=== PATIENT | female | born 1995 | race Caucasian/White ===

== ENCOUNTER 2018-08-03 10:09 | Emergency (ER) | payer BC, OTHER ==
[2018-08-03] MEDS ORDERED: ONDANSETRON HCL INJ/PF 4 MG/2 ML SDV IV ONE (10:19)
[2018-08-03] MEDS ORDERED: NORMAL SALINE 1000 ML 1,000 ML IV PRN (10:19)
--- NOTE | 2018-08-03 10:20 | ER Document Report ---
ED Medical Screen (RME) - General Chief Complaint: OB Problem (<20wks) Stated Complaint: ABDOMINAL PAIN, NAUSEA/VOMITTING Time Seen by Provider: 08/03/18 10:15 TRAVEL OUTSIDE OF THE [place] IN LAST 30 DAYS: No - HPI Notes: 08/03/18 10:19 Patient is a 22-year-old female G1, P0 approximately 17 weeks who presents to the emergency department complaining of feeling mid to epigastric abdominal cramping this morning with increased frequency of nausea and vomiting over the past 3 days. Patient states that she has had nausea and vomiting throughout her , but increased recently. She has not been able to keep much food or fluids down. She still urinating normally and having normal bowel movements. Patient does report a medical history of cholecystectomy and appendectomy. Denies DELEON, fever, neck pain, URI, CP, SOB, current Abd pain, or rash. I have treated and performed a rapid initial assessment of this patient. A comprehensive ED assessment and evaluation of the patient, analysis of test results and completion of medical decision making process will be conducted by additional ED providers. PHYSICAL EXAMINATION: GENERAL: Well-appearing, well-nourished and in no acute distress. A&Ox4. Answers questions appropriately. LUNGS: Breath sounds clear to auscultation bilaterally and equal. No wheezes rales or rhonchi. HEART: Regular rate and rhythm without murmurs, rubs, gallops. ABDOMEN: Soft, nondistended abdomen. No guarding, no rebound. Normal bowel sounds present. No CVA tenderness bilaterally. grossly non-tender (cannot elicit thorough abd exam w/o table, however). - Related Data Allergies/Adverse Reactions: Sulfa (Sulfonamide Antibiotics) Allergy (Verified 08/03/18 10:10) Physical Exam - Vital signs Vitals: Temp Pulse Resp BP Pulse Ox 98 F 99 18 139/72 H 97 08/03/18 10:10 08/03/18 10:10 08/03/18 10:10 08/03/18 10:10 08/03/18 10:10 Course - Vital Signs Vital signs: Temp Pulse Resp BP Pulse Ox 98 F 99 18 139/72 H 97 08/03/18 10:10 08/03/18 10:10 08/03/18 10:10 08/03/18 10:10 08/03/18 10:10
[2018-08-03 10:46] LABS: ABSOLUTE EOSINOPHILS # (AUTO) 0.1 10^3/uL (0.0-0.6); ABSOLUTE LYMPHOCYTES (AUTO) 1.5 10^3/uL (0.5-4.7); ABSOLUTE MONOCYTES (AUTO) 0.5 10^3/uL (0.1-1.4); ABSOLUTE NEUT (AUTO) 10.4 10^3/uL (1.7-8.2); BASOPHILS % (AUTO) 0.3 % (0-2); EOSINOPHILS % (AUTO) 0.5 % (0-6); HEMATOCRIT 38.3 % (36.0-47.0); HEMOGLOBIN 12.6 g/dL (12.0-15.5); LYMPHOCYTES % (AUTO) 11.9 % (13-45); MEAN CORPUSCULAR HEMOGLOBIN 26.6 pg (27.0-33.4); MEAN CORPUSCULAR HGB CONC 32.8 g/dL (32.0-36.0); MEAN CORPUSCULAR VOLUME 81 fl (80-97); PLATELET COUNT 237 10^3/uL (150-450); RED BLOOD COUNT 4.72 10^6/uL (3.72-5.28); SEGMENTED NEUTROPHILS % (AUTO) 83.3 % (42-78); TOTAL CELLS COUNTED % (AUTO) 100 %; WHITE BLOOD COUNT 12.4 10^3/uL (4.0-10.5)
[2018-08-03 10:49] LABS: APPEARANCE,URINE SLIGHTLY-CLOUDY; BILIRUBIN,URINE NEGATIVE (NEGATIVE); COLOR,URINE YELLOW; GLUCOSE, URINE NEGATIVE (NEGATIVE); KETONES,URINE NEGATIVE (NEGATIVE); LEUKOCYTE ESTERASE,URINE NEGATIVE (NEGATIVE); NITRITE,URINE NEGATIVE (NEGATIVE); PROTEIN,URINE NEGATIVE (NEGATIVE); URINE SPECIFIC GRAVITY 1.013; UROBILINOGEN,URINE NEGATIVE mg/dL (<2.0)
--- NOTE | 2018-08-03 11:02 | ER Document Report ---
ED General - General Chief Complaint: OB Problem (<20wks) Stated Complaint: ABDOMINAL PAIN, NAUSEA/VOMITTING Time Seen by Provider: 08/03/18 10:15 Notes: Patient is a 22-year-old female, , 17 wks gravid that presents to the emergency department for chief complaint of nausea, vomiting and epigastric pain patient states that she is been having nausea and vomiting throughout her , she is been on Phenergan and Zofran, but she has not been able to keep the Zofran down at home because she has been have vomiting so much, she is worried she is getting somewhat dehydrated. She is also had epigastric pain she describes as a fullness and burning sensation. She states that she had reflux prior to her as well. She is currently not taking anything for her reflux, no [id number] medications or prescriptions. She denies any lightheadedness, dizziness or syncopal episodes, denies any chest pain or shortness of breath. She denies any vaginal bleeding, discharge, dysuria or hematuria. Past Medical History: GERD, depression, anxiety Past Surgical History: Cholecystectomy, appendectomy Social History: Denies tobacco, alcohol or drug use. Family History: Reviewed and noncontributory for presenting illness Allergies: Reviewed, see documented allergy list. REVIEW OF SYSTEMS: Other than noted above, the 12 point review of systems was reviewed with the patient and were negative, all pertinent findings are included in the HPI. PHYSICAL EXAMINATION: Vital signs reviewed, nursing noted reviewed. GENERAL: Well-appearing, well-nourished and in no acute distress. HEAD: Atraumatic, normocephalic. EYES: Eyes appear normal, extraocular movements intact, sclera anicteric, conjunctiva are normal. ENT: nares patent, oropharynx clear without exudates. Moist mucous membranes. NECK: Normal range of motion, supple without lymphadenopathy LUNGS: Breath sounds clear to auscultation bilaterally and equal. No wheezes rales or rhonchi. HEART: Regular rate and rhythm without murmurs ABDOMEN: Soft, obese, gravid, nontender, normoactive bowel sounds. No rebound, guarding, or rigidity. No masses appreciated. EXTREMITIES: Nontender, good range of motion, no pitting or edema. NEUROLOGICAL: No focal neurological deficits. Moves all extremities spontaneously Motor and sensory grossly intact on exam. PSYCH: Normal mood, normal affect. SKIN: Warm, Dry, normal turgor, no rashes or lesions noted on exposed skin TRAVEL OUTSIDE OF THE [place] IN LAST 30 DAYS: No - Related Data Allergies/Adverse Reactions: Sulfa (Sulfonamide Antibiotics) Allergy (Verified 08/03/18 10:10) Past Medical History - Social History Smoking Status: Never Smoker Chew tobacco use (# tins/day): No Frequency of alcohol use: None Drug Abuse: None Family History: Reviewed & Not Pertinent Patient has suicidal ideation: No Patient has homicidal ideation: No Renal/ Medical History: Denies: Hx Peritoneal Dialysis Psychiatric Medical History: Reports: Hx Attention Deficit Hyperactivity Disorder, Hx Depression Past Surgical History: Reports: Hx Appendectomy - 2011, Hx Cholecystectomy - 2011, Hx Orthopedic Surgery - L ankle Physical Exam - Vital signs Vitals: Temp Pulse Resp BP Pulse Ox 98 F 99 18 139/72 H 97 08/03/18 10:10 08/03/18 10:10 08/03/18 10:10 08/03/18 10:10 08/03/18 10:10 Course - Re-evaluation Re-evalutation: Patient seen and examined vital signs reviewed. Laboratory data and/or imaging were ordered as appropriate for the patient's presenting symptoms and complaint, with consideration of any critical or life threatening conditions that may be associated with their obtained history and exam as noted above. Patient was treated with IV fluids, and IV Zofran Results were reviewed when available and demonstrated mild leukocytosis, likely secondary to the patient's frequent vomiting, no evidence of acute infection. UA did have bacteria, but no leukocyte esterase, white cells, or nitrites, not convincing of urinary tract infection. Chemistry was unremarkable Bedside OB ultrasound was performed, the fetus, was moving all limbs, detectable heartbeat, 144 bpm, placenta was posterior The patient was re-evaluated and was stable and much improved, no further vomiting Evaluation was most consistent with nausea and vomiting in , epigastric pain, likely reflux Results were discussed with the patient at this point, after careful consideration I feel that that patient can be discharged from the emergency department, the patient was educated treatments and reasons to return to the emergency department based on their presumed diagnosis as noted above, they were advised to followup with a primary care physician in 2-3 days. Patient was agreeable to plan of care. *Note is created using voice recognition software and may contain spelling, syntax or grammatical errors. Laboratory 08/03/18 08/03/18 08/03/18 10:30 10:30 10:30 WBC 12.4 H RBC 4.72 Hgb 12.6 Hct 38.3 MCV 81 MCH 26.6 L MCHC 32.8 RDW 15.0 H Plt Count 237 Seg Neutrophils % 83.3 H Lymphocytes % 11.9 L Monocytes % 4.0 Eosinophils % 0.5 Basophils % 0.3 Absolute Neutrophils 10.4 H Absolute Lymphocytes 1.5 Absolute Monocytes 0.5 Absolute Eosinophils 0.1 Absolute Basophils 0.0 Sodium 138.0 Potassium 4.0 Chloride 104 Carbon Dioxide 25 Anion Gap 9 BUN 5 L Creatinine 0.59 Est GFR ( Amer) > 60 Est GFR (Non-Af Amer) > 60 Glucose 78 Calcium 9.6 Total Bilirubin 0.2 Direct Bilirubin 0.2 Neonat Total Bilirubin Not Reportable Neonat Direct Bilirubin Not Reportable Neonat Indirect Bili Not Reportable AST 15 ALT 34 Alkaline Phosphatase 94 Total Protein 6.7 Albumin 3.9 Lipase 82.3 Urine Color YELLOW Urine Appearance SLIGHTLY-CLOUDY Urine pH 6.0 Ur Specific [place] 1.013 Urine Protein NEGATIVE Urine Glucose (UA) NEGATIVE Urine Ketones NEGATIVE Urine Blood NEGATIVE Urine Nitrite NEGATIVE Urine Bilirubin NEGATIVE Urine Urobilinogen NEGATIVE Ur Leukocyte Esterase NEGATIVE Urine WBC (Auto) 4 Urine RBC (Auto) 1 Urine Bacteria (Auto) 3+ Squamous Epi Cells Auto 9 Urine Mucus (Auto) RARE Urine Ascorbic Acid NEGATIVE - Vital Signs Vital signs: Temp Pulse Resp BP Pulse Ox 98 F 99 18 139/72 H 97 08/03/18 10:10 08/03/18 10:10 08/03/18 10:10 08/03/18 10:10 08/03/18 10:10 - Laboratory Result Diagrams: 08/03/18 10:30 08/03/18 10:30 Laboratory results interpreted by me: 08/03/18 08/03/18 10:30 10:30 WBC 12.4 H MCH 26.6 L RDW 15.0 H Seg Neutrophils % 83.3 H Lymphocytes % 11.9 L Absolute Neutrophils 10.4 H BUN 5 L Discharge - Discharge Clinical Impression: Epigastric pain Nausea and vomiting Qualifiers: Vomiting type: unspecified Vomiting Intractability: non-intractable Qualified Code(s): R11.2 - Nausea with vomiting, unspecified Condition: Stable Disposition: HOME, SELF-CARE Instructions: Vomiting ([facility]) Additional Instructions: Please follow-up with your [facility], and you can try taking the Reglan, up to 3 times a day, if needed for nausea and vomiting. I would also recommend trying to take Zantac 150 mg twice daily, to help with the reflux symptoms. Prescriptions: Metoclopramide HCl [Reglan 10 mg Tablet] 1 tab PO Q8H PRN #15 tablet PRN Reason: nausea/vomiting Referrals: [facility] [Provider Group] - Follow up in 3-5 days
[2018-08-03 11:03] LABS: ALANINE AMINOTRANSFERASE 34 U/L (9-52); ALBUMIN 3.9 g/dL (3.5-5.0); ALKALINE PHOSPHATASE 94 U/L (38-126); ANION GAP 9 (5-19); ASPARTATE AMINO TRANSFERASE 15 U/L (14-36); BILIRUBIN,DIRECT 0.2 mg/dL (0.0-0.4); BILIRUBIN,TOTAL 0.2 mg/dL (0.2-1.3); BLOOD UREA NITROGEN 5 mg/dL (7-20); CALCIUM 9.6 mg/dL (8.4-10.2); CARBON DIOXIDE 25 mmol/L (22-30); CHLORIDE 104 mmol/L (98-107); GLUCOSE 78 mg/dL (75-110); LIPASE 82.3 U/L (23-300); TOTAL PROTEIN 6.7 g/dL (6.3-8.2)
[2018-08-03 12:18] VITALS: BP 121/66
== END 2018-08-03 11:45 | disposition home or self-care (01) ==
LOC: ER 10:09
DX: O21.9 Vomiting of pregnancy, unspecified (principal); Z79.899 Other long term (current) drug therapy; O26.892 Other specified pregnancy related conditions, second trimester; R10.13 Epigastric pain; R82.71 Bacteriuria; O99.112 Other diseases of the blood and blood-forming organs and certain disorders involving the immune mechanism complicating pregnancy, second trimester; D72.829 Elevated white blood cell count, unspecified; Z3A.17 17 weeks gestation of pregnancy; Z87.19 Personal history of other diseases of the digestive system; Z90.49 Acquired absence of other specified parts of digestive tract; Z88.2 Allergy status to sulfonamides
CPT/HCPCS: 99284; 96361; 96374; 36415; 87086; 83690; 85025; 80053; 81001; J2405; J7030

== ENCOUNTER 2018-09-02 10:39 | Emergency (ER) | payer BC, OTHER ==
[2018-09-02 10:55] VITALS: BP 136/79
[2018-09-02] MEDS ORDERED: METOCLOPRAMIDE HCL INJ/PF 10 MG/2 ML SDV IV ONE (11:21)
[2018-09-02] MEDS ORDERED: NORMAL SALINE 1000 ML 1,000 ML IV ONE (11:21)
--- NOTE | 2018-09-02 11:23 | ER Document Report ---
ED Medical Screen (RME) - General Chief Complaint: Nausea/Vomiting Stated Complaint: VOMITING Time Seen by Provider: 09/02/18 11:17 TRAVEL OUTSIDE OF THE [place] IN LAST 30 DAYS: No - HPI Notes: 09/02/18 11:21 Patient is a 22-year-old female who is approximate 22 weeks who presents complaint nausea, vomiting, watery diarrhea that began 5 days ago. Patient [facility]. Patient states that her last episode of vomiting was early this morning. Patient states that when she vomited yesterday she did have an episode of possible Parker Snyder contraction which only occurred after she vomited and resolved soon after. She has not had any contraction-like pain otherwise. No vaginal discharge, odor, or bleeding. Patient states that she does have history of anxiety and depression as well as chronic GI issues after having her gallbladder removed years ago. No other past medical history. Denies DELEON, fever, neck pain, URI, CP, SOB, Abd pain, dysuria, back pain, or rash. I have treated and performed a rapid initial assessment of this patient. A comprehensive ED assessment and evaluation of the patient, analysis of test results and completion of medical decision making process will be conducted by additional ED providers. PHYSICAL EXAMINATION: GENERAL: Well-appearing, well-nourished and in no acute distress. A&Ox4. Answers questions appropriately. LUNGS: Breath sounds clear to auscultation bilaterally and equal. No wheezes rales or rhonchi. HEART: Regular rate and rhythm without murmurs, rubs, gallops. - Related Data Allergies/Adverse Reactions: Sulfa (Sulfonamide Antibiotics) Allergy (Verified 09/02/18 11:10) Past Medical History - Social History Frequency of alcohol use: None Drug Abuse: None Renal/ Medical History: Denies: Hx Peritoneal Dialysis Psychiatric Medical History: Reports: Hx Attention Deficit Hyperactivity Disorder, Hx Depression Past Surgical History: Reports: Hx Appendectomy - 2011, Hx Cholecystectomy - 2011, Hx Orthopedic Surgery - L ankle Physical Exam - Vital signs Vitals: Temp Pulse Resp BP Pulse Ox 98.1 F 109 H 20 136/79 H 97 09/02/18 10:54 09/02/18 10:54 09/02/18 10:54 09/02/18 10:54 09/02/18 10:54 Course - Vital Signs Vital signs: Temp Pulse Resp BP Pulse Ox 98.1 F 109 H 20 136/79 H 97 09/02/18 10:54 09/02/18 10:54 09/02/18 10:54 09/02/18 10:54 09/02/18 10:54
[2018-09-02 11:55] LABS: ABSOLUTE BASOPHILS # (AUTO) 0.1 10^3/uL (0.0-0.2); ABSOLUTE LYMPHOCYTES (AUTO) 1.5 10^3/uL (0.5-4.7); ABSOLUTE MONOCYTES (AUTO) 0.5 10^3/uL (0.1-1.4); ABSOLUTE NEUT (AUTO) 10.1 10^3/uL (1.7-8.2); BASOPHILS % (AUTO) 0.4 % (0-2); EOSINOPHILS % (AUTO) 0.4 % (0-6); HEMATOCRIT 38.7 % (36.0-47.0); HEMOGLOBIN 13.1 g/dL (12.0-15.5); LYMPHOCYTES % (AUTO) 12.2 % (13-45); MEAN CORPUSCULAR HEMOGLOBIN 27.3 pg (27.0-33.4); MEAN CORPUSCULAR HGB CONC 33.9 g/dL (32.0-36.0); MEAN CORPUSCULAR VOLUME 81 fl (80-97); MONOCYTES % (AUTO) 3.9 % (3-13); PLATELET COUNT 277 10^3/uL (150-450); RED CELL DISTRIBUTION WIDTH 14.6 % (11.5-14.0); SEGMENTED NEUTROPHILS % (AUTO) 83.1 % (42-78); TOTAL CELLS COUNTED % (AUTO) 100 %; WHITE BLOOD COUNT 12.1 10^3/uL (4.0-10.5)
[2018-09-02 12:10] LABS: APPEARANCE,URINE CLOUDY; BILIRUBIN,URINE SMALL (NEGATIVE); COLOR,URINE AMBER; GLUCOSE, URINE NEGATIVE (NEGATIVE); KETONES,URINE 80 mg/dL (NEGATIVE); LEUKOCYTE ESTERASE,URINE NEGATIVE (NEGATIVE); NITRITE,URINE NEGATIVE (NEGATIVE); PROTEIN,URINE 30 mg/dL (NEGATIVE); URINE SPECIFIC GRAVITY 1.025
[2018-09-02 12:18] LABS: ALANINE AMINOTRANSFERASE 94 U/L (9-52); ALBUMIN 4.1 g/dL (3.5-5.0); ALKALINE PHOSPHATASE 141 U/L (38-126); ANION GAP 12 (5-19); ASPARTATE AMINO TRANSFERASE 55 U/L (14-36); BILIRUBIN,DIRECT 0.3 mg/dL (0.0-0.4); BILIRUBIN,TOTAL 0.6 mg/dL (0.2-1.3); BLOOD UREA NITROGEN 6 mg/dL (7-20); CALCIUM 9.6 mg/dL (8.4-10.2); CARBON DIOXIDE 25 mmol/L (22-30); CHLORIDE 103 mmol/L (98-107); GLUCOSE 74 mg/dL (75-110); POTASSIUM 4.1 mmol/L (3.6-5.0); SODIUM 139.7 mmol/L (137-145); TOTAL PROTEIN 7.1 g/dL (6.3-8.2)
--- NOTE | 2018-09-02 14:35 | ER Document Report ---
ED General - General Chief Complaint: Nausea/Vomiting Stated Complaint: VOMITING Time Seen by Provider: 09/02/18 11:17 TRAVEL OUTSIDE OF THE [place] IN LAST 30 DAYS: No - HPI Notes: Patient is a 22-year-old female, , who presents to the emergency department for evaluation of nausea, vomiting, diarrhea. She was sent in by her OBs office for possible IV fluids. She is been on multiple medications for nausea. She has had multiple episodes of nonbloody, nonbilious emesis, as well as some diarrhea. She denies any fevers or chills. She has no vaginal bleeding or discharge. She is still feeling the baby move. She denies any pain at this time. - Related Data Allergies/Adverse Reactions: Sulfa (Sulfonamide Antibiotics) Allergy (Verified 09/02/18 11:10) Home Medications: Lexapro, Vyvanse, vitamin Past Medical History - General Information source: Patient - Social History Smoking Status: Never Smoker Frequency of alcohol use: None Drug Abuse: None Family History: Reviewed & Not Pertinent Patient has suicidal ideation: No Patient has homicidal ideation: No Renal/ Medical History: Denies: Hx Peritoneal Dialysis Psychiatric Medical History: Reports: Hx Attention Deficit Hyperactivity Disorder, Hx Depression Past Surgical History: Reports: Hx Appendectomy - 2011, Hx Cholecystectomy - 2011, Hx Orthopedic Surgery - L ankle Review of Systems - Review of Systems Constitutional: No symptoms reported EENT: No symptoms reported Cardiovascular: No symptoms reported Respiratory: No symptoms reported Gastrointestinal: See HPI Genitourinary: No symptoms reported Female Genitourinary: See HPI Musculoskeletal: No symptoms reported Skin: No symptoms reported Neurological/Psychological: No symptoms reported Physical Exam - Vital signs Vitals: Temp Pulse Resp BP Pulse Ox 98.1 F 109 H 20 136/79 H 97 09/02/18 10:54 09/02/18 10:54 09/02/18 10:54 09/02/18 10:54 09/02/18 10:54 - Notes Notes: Vital signs reviewed, please refer to chart. Head is normocephalic, atraumatic. Pupils equal round, reactive to light. Neck is supple without meningismus. Heart is regular rate and rhythm. Lungs are clear to auscultation bilaterally. Abdomen is gravid, nontender, normoactive bowel sounds throughout. Extremities without cyanosis, clubbing. Posterior calves are nontender. Peripheral pulses are equal. Skin is warm and dry. Patient is awake, alert, neurological exam is nonfocal. Course - Re-evaluation Re-evalutation: 09/02/18 14:33 Patient presents to the emergency department for evaluation. She was reviewed with laboratory investigations, given IV fluids and Reglan. She states her nausea is entirely resolved. She is still having some mild diarrhea. I did offer her more IV fluids. She declines at this time, states she rather just go home. She has a prescription for Reglan waiting for her. She is advised on dietary choices for diarrhea. She is advised to follow-up with her OB this week. Certainly if she develops worsening or new concerning symptoms of any sort, including but not limited to abdominal pain, vaginal bleeding, dizziness, she needs to return to the ED for further evaluation. - Vital Signs Vital signs: Temp Pulse Resp BP Pulse Ox 98.1 F 109 H 20 136/79 H 97 09/02/18 10:54 09/02/18 10:54 09/02/18 10:54 09/02/18 10:54 09/02/18 10:54 - Laboratory Result Diagrams: 09/02/18 11:41 09/02/18 11:41 Laboratory results interpreted by me: 09/02/18 09/02/18 09/02/18 11:41 11:41 11:50 WBC 12.1 H RDW 14.6 H Seg Neutrophils % 83.1 H Lymphocytes % 12.2 L Absolute Neutrophils 10.1 H BUN 6 L Glucose 74 L AST 55 H ALT 94 H Alkaline Phosphatase 141 H Urine Protein 30 H Urine Ketones 80 H Urine Bilirubin SMALL H Urine Urobilinogen 4.0 H Discharge - Discharge Clinical Impression: Nausea and vomiting in , Diarrhea Condition: Stable Disposition: HOME, SELF-CARE Instructions: Intravenous (IV) Fluids ([facility]), Vomiting ([facility]), Reglan ([facility]) Additional Instructions: Follow-up with your OB as scheduled. Take Reglan as needed for nausea. Return to the emergency department with worsening or new concerning symptoms of any sort.
== END 2018-09-02 16:13 | disposition home or self-care (01) ==
LOC: ER 10:39
DX: O21.9 Vomiting of pregnancy, unspecified (principal); R19.7 Diarrhea, unspecified; Z88.2 Allergy status to sulfonamides; Z90.49 Acquired absence of other specified parts of digestive tract
CPT/HCPCS: 99284; 96361; 96374; 36415; 83690; 85025; 80053; 81001; J2765; J7030

== ENCOUNTER 2018-11-24 19:34 | Outpatient (CLI) | payer BC, OTHER ==
[2018-11-24 20:22] LABS: BACTERIA (WET MOUNT) 4+ BACTERIA SEEN; EPITHELIALS (WET MOUNT) 4+ EPITHELIALS SEEN; RBCS (WET MOUNT) NO RBCS SEEN; T.VAGINALIS (WET MOUNT) NO TRICHOMONAS SEEN; WBCS (WET MOUNT) 3+ WBCS SEEN; YEAST (WET MOUNT) NO YEAST SEEN
[2018-11-24 20:40] LABS: APPEARANCE,URINE CLEAR; BILIRUBIN,URINE NEGATIVE (NEGATIVE); COLOR,URINE YELLOW; GLUCOSE, URINE NEGATIVE (NEGATIVE); KETONES,URINE NEGATIVE (NEGATIVE); LEUKOCYTE ESTERASE,URINE NEGATIVE (NEGATIVE); NITRITE,URINE NEGATIVE (NEGATIVE); PROTEIN,URINE 30 mg/dL (NEGATIVE); URINE SPECIFIC GRAVITY 1.018; UROBILINOGEN,URINE NEGATIVE mg/dL (<2.0)
[2018-11-24] MEDS ORDERED: HYDROXYZINE PAMOATE 50 MG CAPSULE ONE (20:51)
[2018-11-24 21:03] LABS: URINE AMPHETAMINES SCREEN NEGATIVE; URINE BARBITURATES SCREEN NEGATIVE; URINE BENZODIAZEPINES SCREEN NEGATIVE; URINE COCAINE SCREEN NEGATIVE; URINE MARIJUANA (THC) SCREEN NEGATIVE; URINE METHADONE SCREEN NEGATIVE; URINE PHENCYCLIDINE SCREEN NEGATIVE
[2018-11-24 21:50] LABS: CHLAM PCR NOT DETECTED (NOT DETECT)
--- NOTE | 2018-11-24 22:20 | Non Stress Test Report ---
Non Stress Test Datetime Report Generated by CPN: 11/24/2018 22:20 DEMOGRAPHIC EGA NST: 33.3 INDICATION Indication for Study: Ordered by Provider MONITORING Monitor Explained: Monitor Explained; Test Explained; Patient Verbalized Understanding Time on Monitor: 11/24/2018 20:07 Time off Monitor: 11/24/2018 20:52 NST Duration: 45 NST INTERVENTIONS NST Interventions: PO Hydration Physician Notified NST: Dr. Keanu BABY A: [id number] BABY A Movement : Present Contraction Frequency : Occasional FHR Baseline : 140 Accelerations : 15X15 Decelerations : None Variability : Moderate 6-25bpm NST Review: Meets Criteria for Reactive NST NST Review and Verified By : Eddie Holder RN NSRuth Results: Reactive NST REPORT Report Trigger: Send Report
[2018-11-24] MEDS ORDERED: HYDROXYZINE PAMOATE 50 MG CAPSULE PO ONE (22:32)
== END 2018-11-24 21:24 | disposition home or self-care (01) ==
LOC: LC 19:34
PROVIDERS: ATTEND Obstetrics & Gynecology
PROC: 4A1HXCZ Monitoring of Products of Conception, Cardiac Rate, External Approach (ICD-10-PCS; principal; 2018-11-24)
DX: O47.03 False labor before 37 completed weeks of gestation, third trimester (principal); Z3A.33 33 weeks gestation of pregnancy
CPT/HCPCS: 80307; 81001; 84112; 87210; 87491; 87591

== ENCOUNTER 2018-12-02 09:59 | Emergency (ER) | payer BC, OTHER ==
[2018-12-02] MEDS ORDERED: METOCLOPRAMIDE HCL INJ/PF 10 MG/2 ML SDV IV ONE (11:33)
[2018-12-02] MEDS ORDERED: NORMAL SALINE 1000 ML 1,000 ML IV ONE ×2 (11:33)
--- NOTE | 2018-12-02 11:35 | ER Document Report ---
ED Medical Screen (RME) - General Chief Complaint: Nausea Stated Complaint: POSSIBLE DEHYDRATION Time Seen by Provider: 12/02/18 11:31 Primary Care Provider: BO WILLARD MD [Primary Care Provider] - Follow up as needed Mode of Arrival: Ambulatory Information source: Patient Notes: Patient is an otherwise healthy 23-year-old female presenting to the emergency department at 34 weeks gestation with complaints of ongoing nausea with vomiting. Patient reports this is been ongoing her entire . She states she was seen at [facility] today who directed her to the emergency room for IV fluids. She states that she usually takes Reglan or Zofran for her nausea. She denies any abdominal pain, abdominal cramping, vaginal discharge, vaginal bleeding or dysuria. Exam: Large gravid abdomen is soft and nontender. No CVA tenderness. I have greeted and performed a rapid initial assessment of this patient. A comprehensive ED assessment and evaluation of the patient, analysis of test results and completion of the medical decision making process will be conducted by additional ED providers. I have specifically instructed the patient or family members with the patient to immediately return to any nursing staff should anything change in the patient's condition or with their chief complaint. This medical record was dictated with voice recognizing software. There may be grammatical, syntax errors that are unintended. TRAVEL OUTSIDE OF THE [place] IN LAST 30 DAYS: No - Related Data Allergies/Adverse Reactions: Sulfa (Sulfonamide Antibiotics) Allergy (Verified 12/02/18 10:02) Past Medical History Renal/ Medical History: Denies: Hx Peritoneal Dialysis Psychiatric Medical History: Reports: Hx Attention Deficit Hyperactivity Disorder, Hx Depression Past Surgical History: Reports: Hx Appendectomy - 2011, Hx Cholecystectomy - 2011, Hx Orthopedic Surgery - L ankle Physical Exam - Vital signs Vitals: Temp Pulse Resp BP Pulse Ox 97.8 F 92 16 136/76 H 98 12/02/18 10:05 12/02/18 10:05 12/02/18 10:05 12/02/18 10:05 12/02/18 10:05 Course - Vital Signs Vital signs: Temp Pulse Resp BP Pulse Ox 97.8 F 92 16 136/76 H 98 12/02/18 10:05 12/02/18 10:05 12/02/18 10:05 12/02/18 10:05 09/10/19 10:05 Doctor's Discharge - Discharge Referrals: BO WILLARD MD [Primary Care Provider] - Follow up as needed
[2018-12-02 12:06] LABS: ABSOLUTE BASOPHILS # (AUTO) 0.1 10^3/uL (0.0-0.2); ABSOLUTE EOSINOPHILS # (AUTO) 0.1 10^3/uL (0.0-0.6); ABSOLUTE LYMPHOCYTES (AUTO) 1.4 10^3/uL (0.5-4.7); ABSOLUTE MONOCYTES (AUTO) 0.5 10^3/uL (0.1-1.4); ABSOLUTE NEUT (AUTO) 9.5 10^3/uL (1.7-8.2); BASOPHILS % (AUTO) 0.5 % (0-2); EOSINOPHILS % (AUTO) 0.6 % (0-6); HEMATOCRIT 35.3 % (36.0-47.0); HEMOGLOBIN 11.6 g/dL (12.0-15.5); LYMPHOCYTES % (AUTO) 12.2 % (13-45); MEAN CORPUSCULAR HEMOGLOBIN 25.6 pg (27.0-33.4); MEAN CORPUSCULAR HGB CONC 32.8 g/dL (32.0-36.0); MEAN CORPUSCULAR VOLUME 78 fl (80-97); MONOCYTES % (AUTO) 4.7 % (3-13); PLATELET COUNT 255 10^3/uL (150-450); RED BLOOD COUNT 4.52 10^6/uL (3.72-5.28); RED CELL DISTRIBUTION WIDTH 14.8 % (11.5-14.0); TOTAL CELLS COUNTED % (AUTO) 100 %; WHITE BLOOD COUNT 11.6 10^3/uL (4.0-10.5)
[2018-12-02 12:13] LABS: APPEARANCE,URINE SLIGHTLY-CLOUDY; BILIRUBIN,URINE NEGATIVE (NEGATIVE); COLOR,URINE AMBER; GLUCOSE, URINE NEGATIVE (NEGATIVE); KETONES,URINE NEGATIVE (NEGATIVE); LEUKOCYTE ESTERASE,URINE NEGATIVE (NEGATIVE); NITRITE,URINE NEGATIVE (NEGATIVE); PROTEIN,URINE 30 mg/dL (NEGATIVE); URINE SPECIFIC GRAVITY 1.023; UROBILINOGEN,URINE NEGATIVE mg/dL (<2.0)
[2018-12-02 12:29] LABS: ALBUMIN 3.6 g/dL (3.5-5.0); ALKALINE PHOSPHATASE 205 U/L (38-126); ANION GAP 11 (5-19); ASPARTATE AMINO TRANSFERASE 62 U/L (14-36); BILIRUBIN,DIRECT 0.1 mg/dL (0.0-0.4); BILIRUBIN,TOTAL 0.3 mg/dL (0.2-1.3); BLOOD UREA NITROGEN 6 mg/dL (7-20); CALCIUM 9.3 mg/dL (8.4-10.2); CARBON DIOXIDE 23 mmol/L (22-30); CHLORIDE 103 mmol/L (98-107); POTASSIUM 4.1 mmol/L (3.6-5.0); TOTAL PROTEIN 6.3 g/dL (6.3-8.2)
[2018-12-02 12:53] LABS: GLUCOSE 69 mg/dL (75-110)
[2018-12-02 14:18] VITALS: BP 133/56
--- NOTE | 2018-12-02 14:47 | ER Document Report ---
ED General - General Chief Complaint: Nausea Stated Complaint: POSSIBLE DEHYDRATION Time Seen by Provider: 12/02/18 11:31 Primary Care Provider: BO WILLARD MD [ACTIVE STAFF] - Follow up as needed Mode of Arrival: Ambulatory Notes: 23-year-old female presenting to the emergency department at 34 weeks gestation with complaints of ongoing nausea with vomiting. Patient reports this is been ongoing her entire . She states she was seen at [facility] today who directed her to the emergency room for IV fluids. She states that she usually takes Reglan or Zofran for her nausea. She denies any abdominal pain, abdominal cramping, vaginal discharge, vaginal bleeding or dysuria. TRAVEL OUTSIDE OF THE [place] IN LAST 30 DAYS: No - Related Data Allergies/Adverse Reactions: Sulfa (Sulfonamide Antibiotics) Allergy (Verified 12/02/18 10:02) Past Medical History - General Information source: Patient - Social History Smoking Status: Never Smoker Chew tobacco use (# tins/day): No Frequency of alcohol use: None Drug Abuse: None Family History: Reviewed & Not Pertinent Patient has suicidal ideation: No Patient has homicidal ideation: No Renal/ Medical History: Denies: Hx Peritoneal Dialysis Psychiatric Medical History: Reports: Hx Attention Deficit Hyperactivity Disorder, Hx Depression Past Surgical History: Reports: Hx Appendectomy - 2011, Hx Cholecystectomy - 2011, Hx Orthopedic Surgery - L ankle Review of Systems - Review of Systems Constitutional: See HPI EENT: No symptoms reported Cardiovascular: No symptoms reported Respiratory: See HPI Gastrointestinal: See HPI Genitourinary: See HPI Female Genitourinary: See HPI Musculoskeletal: No symptoms reported Skin: No symptoms reported Hematologic/Lymphatic: No symptoms reported Neurological/Psychological: See HPI Physical Exam - Vital signs Vitals: Temp Pulse Resp BP Pulse Ox 97.8 F 92 16 136/76 H 98 12/02/18 10:05 12/02/18 10:05 12/02/18 10:05 12/02/18 10:05 12/02/18 10:05 - Notes Notes: PHYSICAL EXAMINATION: Reviewed vital signs and charting by RN GENERAL: Alert, interacts well. No acute distress. HEAD: Normocephalic, atraumatic. EYES: Pupils equal and round. Extraocular movements intact. ENT: Oral mucosa moist, tongue midline. NECK: Full range of motion. Trachea midline. LUNGS: Clear to auscultation bilaterally, no wheezes, rales, or rhonchi. No respiratory distress. HEART: Regular rate and rhythm. No murmur ABDOMEN: Gravid, non-tender. Bowel sounds present EXTREMITIES: Moves all 4 extremities spontaneously. No edema, No cyanosis. PSYCH: Normal affect, normal mood. SKIN: Warm, dry, normal turgor. No rashes or lesions noted. Course - Re-evaluation Re-evalutation: 12/02/18 17:02 Patient is overall very well-appearing and nontoxic. Patient received 2 L of n ormal saline and Reglan. Patient reports feeling much better after getting hydrated. States that sided but it is no worse than what it has been her entire . Vital signs. Accu-Chek was completedafter initial lab work showed a serum glucose of 69 and repeat was 87. Patient was able to tolerate p.o. Patient feels much better and is going to follow-up with [facility]. At this time her vital signs are within normal limits and she is stable for discharge. 12/02/18 17:03 - Vital Signs Vital signs: Temp Pulse Resp BP Pulse Ox 97.6 F 78 16 133/56 H 100 12/02/18 14:15 12/02/18 14:15 12/02/18 14:15 12/02/18 14:15 12/02/18 14:15 - Laboratory Result Diagrams: 12/02/18 11:48 12/02/18 11:48 Laboratory results interpreted by me: 12/02/18 12/02/18 12/02/18 11:48 11:48 11:48 WBC 11.6 H Hgb 11.6 L Hct 35.3 L MCV 78 L MCH 25.6 L RDW 14.8 H Lymph % (Auto) 12.2 L Absolute Neuts (auto) 9.5 H Seg Neutrophils % 82.0 H Sodium 136.6 L BUN 6 L Glucose 69 L AST 62 H Alkaline Phosphatase 205 H Urine Protein 30 H Discharge - Discharge Clinical Impression: Dehydration, Hypoglycemia Condition: Good Disposition: HOME, SELF-CARE Additional Instructions: Please be sure to drink plenty of fluids. Please ensure that you follow-up with your [facility] next 24 to 48 hours to see if they want to schedule an appointment for you or just go to your next regularly scheduled appointment. Please return to the emergency department if you pass out, developed diffuse muscle cramping, have persistent vomiting, or have any other symptoms that are worrisome to you. Referrals: BO WILLARD MD [ACTIVE STAFF] - Follow up as needed
== END 2018-12-02 15:09 | disposition home or self-care (01) ==
LOC: ER 09:59
DX: O99.283 Endocrine, nutritional and metabolic diseases complicating pregnancy, third trimester (principal); E86.0 Dehydration; E16.2 Hypoglycemia, unspecified; O21.2 Late vomiting of pregnancy; Z3A.34 34 weeks gestation of pregnancy; Z88.2 Allergy status to sulfonamides
CPT/HCPCS: 36415; 82962; 85025; 80053; 81001; J2765; J7030; 96361; 96374; 99283

== ENCOUNTER → 2018-12-03 | Outpatient (CLI) | payer BC, OTHER ==
--- NOTE | 2018-12-03 09:34 | RADIOLOGY REPORT (SQ) ---
EXAM DESCRIPTION: U/S ABDOMEN LIMITED W/O DOP COMPLETED DATE/TIME: 12/03/2018 8:44 am REASON FOR STUDY: R94.5 ABNORMAL RESULTS OF LIVER FUNCTION STUDIES R94.5 ABNORMAL RESULTS OF LIVER FUNCTION STUDIES COMPARISON: None. TECHNIQUE: Dynamic and static grayscale images acquired of the abdomen and recorded on PACS. Additio nal selected color Doppler and spectral images recorded. LIMITATIONS: None. FINDINGS: PANCREAS: No pancreatic ductal dilatation. LIVER: Normal contour and echotexture. LIVER VASCULATURE: Normal directional flow of the main portal vein and hepatic veins. GALLBLADDER: The gallbladder is surgically absent. INTRAHEPATIC DUCTS AND COMMON DUCT: The CBD and intrahepatic ducts are normal caliber. INFERIOR VENA CAVA: Normal flow. AORTA: No aneurysm. RIGHT KIDNEY: Normal size. Normal echogenicity. No solid or cystic masses. No hydronephrosis. No milton cifications. PERITONEAL AND RIGHT PLEURAL SPACE: No ascites or effusions. OTHER: No other findings. IMPRESSION: Status post cholecystectomy. No sonographic abnormality of the imaged abdominal structu res. TECHNICAL DOCUMENTATION: JOB ID: [id number] [employer]- All Rights Reserved Reading location - IP/workstation name: [email or web address]
== END ==
LOC: RAD 09:07
PROVIDERS: ATTEND Student in an Organized Health Care Education/Training Program
DX: R94.5 Abnormal results of liver function studies (principal)
CPT/HCPCS: 76705

== ENCOUNTER 2018-12-17 12:26 | Outpatient (CLI) | payer BC, OTHER ==
[2018-12-17 13:18] LABS: APPEARANCE,URINE SLIGHTLY-CLOUDY; BILIRUBIN,URINE NEGATIVE (NEGATIVE); CALCIUM OXALATE CRYSTALS,URINE MANY /HPF; GLUCOSE, URINE NEGATIVE (NEGATIVE); KETONES,URINE NEGATIVE (NEGATIVE); LEUKOCYTE ESTERASE,URINE NEGATIVE (NEGATIVE); NITRITE,URINE NEGATIVE (NEGATIVE); PROTEIN,URINE 30 mg/dL (NEGATIVE); URINE SPECIFIC GRAVITY 1.021; UROBILINOGEN,URINE NEGATIVE mg/dL (<2.0)
[2018-12-17 13:23] LABS: COLOR,URINE YELLOW
[2018-12-17 13:31] LABS: URINE AMPHETAMINES SCREEN NEGATIVE; URINE BARBITURATES SCREEN NEGATIVE; URINE BENZODIAZEPINES SCREEN NEGATIVE; URINE COCAINE SCREEN NEGATIVE; URINE MARIJUANA (THC) SCREEN NEGATIVE; URINE METHADONE SCREEN NEGATIVE; URINE PHENCYCLIDINE SCREEN NEGATIVE
[2018-12-17] MEDS ORDERED: ONDANSETRON HCL INJ/PF 4 MG/2 ML SDV IV ONE (13:41)
[2018-12-17] MEDS ORDERED: RINGERS SOLUTION,LACTATED 1,000 ML IV PRN (13:41)
[2018-12-17] MEDS ORDERED: ONDANSETRON HCL INJ/PF 4 MG/2 ML SDV ONE (13:41)
[2018-12-17] MEDS ORDERED: MORPHINE SULFATE 10 MG/ML INJ ONE (14:52)
[2018-12-17] MEDS ORDERED: MORPHINE SULFATE 10 MG/ML INJ IV ONE (16:00)
--- NOTE | 2018-12-17 16:06 | Non Stress Test Report ---
Non Stress Test Datetime Report Generated by CPN: 12/17/2018 16:06 DEMOGRAPHIC EGA NST: 36.5 INDICATION Indication for Study: Other Indication for Study (NST) Other: LC VITAL SIGNS Temperature - NST: 98.5 Pulse - NST: 88 RESP - NST: 15 NBPSYS NST: 121 NBPDIA NST: 59 MONITORING Monitor Explained: Monitor Explained; Test Explained; Patient Verbalized Understanding Time on Monitor: 12/17/2018 13:24 Time off Monitor: 12/17/2018 13:44 NST Duration: 20 NST INTERVENTIONS NST Interventions: PO Hydration; IV Fluids Physician Notified NST: CVivek Kaur, CNM BABY A: [id number] BABY A Movement : Present Contraction Frequency : irregular FHR Baseline : 145 Accelerations : 15X15 Decelerations : None Variability : Moderate 6-25bpm NST Review: Meets Criteria for Reactive NST NST Review and Verified By : THIERNO Rivera Results: Reactive NST REPORT Report Trigger: Send Report
== END 2018-12-17 16:12 | disposition home or self-care (01) ==
LOC: LC 12:26
PROVIDERS: ATTEND Obstetrics & Gynecology
PROC: 4A1HXCZ Monitoring of Products of Conception, Cardiac Rate, External Approach (ICD-10-PCS; principal; 2018-12-17)
DX: O47.03 False labor before 37 completed weeks of gestation, third trimester (principal); Z3A.36 36 weeks gestation of pregnancy
CPT/HCPCS: 59025; 81001; 80307; J2270; J2405; 87086; 87088

== ENCOUNTER 2018-12-19 18:51 | Outpatient (CLI) | payer BC, OTHER ==
[2018-12-19] MEDS: RINGERS SOLUTION,LACTATED 1,000 ML IV PRN ×2 (20:50→22:31)
[2018-12-19 21:27] LABS: APPEARANCE,URINE SLIGHTLY-CLOUDY; BILIRUBIN,URINE NEGATIVE (NEGATIVE); COLOR,URINE YELLOW; GLUCOSE, URINE NEGATIVE (NEGATIVE); KETONES,URINE NEGATIVE (NEGATIVE); LEUKOCYTE ESTERASE,URINE NEGATIVE (NEGATIVE); NITRITE,URINE NEGATIVE (NEGATIVE); PROTEIN,URINE NEGATIVE (NEGATIVE); URINE SPECIFIC GRAVITY 1.023
[2018-12-19 21:54] LABS: URINE AMPHETAMINES SCREEN NEGATIVE; URINE BARBITURATES SCREEN NEGATIVE; URINE BENZODIAZEPINES SCREEN NEGATIVE; URINE COCAINE SCREEN NEGATIVE; URINE MARIJUANA (THC) SCREEN NEGATIVE; URINE METHADONE SCREEN NEGATIVE; URINE PHENCYCLIDINE SCREEN NEGATIVE
[2018-12-19] MEDS ORDERED: ACETAMINOPHEN 325 MG TABLET ONE (22:34)
[2018-12-19] MEDS ORDERED: ACETAMINOPHEN 325 MG TABLET PO ONE (22:36)
[2018-12-19 22:49] LABS: ABSOLUTE EOSINOPHILS # (AUTO) 0.1 10^3/uL (0.0-0.6); ABSOLUTE LYMPHOCYTES (AUTO) 1.5 10^3/uL (0.5-4.7); ABSOLUTE MONOCYTES (AUTO) 0.6 10^3/uL (0.1-1.4); ABSOLUTE NEUT (AUTO) 8.4 10^3/uL (1.7-8.2); BASOPHILS % (AUTO) 0.4 % (0-2); EOSINOPHILS % (AUTO) 0.6 % (0-6); HEMATOCRIT 31.5 % (36.0-47.0); HEMOGLOBIN 10.6 g/dL (12.0-15.5); LYMPHOCYTES % (AUTO) 13.9 % (13-45); MEAN CORPUSCULAR HGB CONC 33.6 g/dL (32.0-36.0); MEAN CORPUSCULAR VOLUME 77 fl (80-97); MONOCYTES % (AUTO) 5.4 % (3-13); PLATELET COUNT 213 10^3/uL (150-450); RED BLOOD COUNT 4.07 10^6/uL (3.72-5.28); RED CELL DISTRIBUTION WIDTH 15.1 % (11.5-14.0); SEGMENTED NEUTROPHILS % (AUTO) 79.7 % (42-78); TOTAL CELLS COUNTED % (AUTO) 100 %; WHITE BLOOD COUNT 10.6 10^3/uL (4.0-10.5)
[2018-12-19 23:07] LABS: ALKALINE PHOSPHATASE 201 U/L (38-126); ANION GAP 8 (5-19); ASPARTATE AMINO TRANSFERASE 141 U/L (14-36); BILIRUBIN,DIRECT 0.2 mg/dL (0.0-0.4); BILIRUBIN,TOTAL 0.3 mg/dL (0.2-1.3); BLOOD UREA NITROGEN 7 mg/dL (7-20); CALCIUM 8.6 mg/dL (8.4-10.2); CARBON DIOXIDE 22 mmol/L (22-30); CHLORIDE 107 mmol/L (98-107); GLUCOSE 80 mg/dL (75-110); POTASSIUM 3.6 mmol/L (3.6-5.0); TOTAL PROTEIN 5.5 g/dL (6.3-8.2)
--- NOTE | 2018-12-20 00:34 | RADIOLOGY REPORT (SQ) ---
EXAM DESCRIPTION: US BIOPHYSICAL PROFILE WITHOUT NON STRESS TEST COMPLETED DATE/TME: 12/19/2018 00:00 CLINICAL HISTORY: 23 years Female, tachycardia 37.0 w Comparison: None. TECHNIQUE/LIMITATION: Targeted OB sonogram for requested parameters only. FINDINGS: Single IUP Cardiac activity: 139-bpm. Presentation: Vertex. EMMIE: 10.7-cm breathing: Zero (abnormal) absent or no episode of greater than 30 seconds in full 30 minutes. posture and tone: Two, normal movement: Two, normal Amniotic fluid volume: Two, normal, EMMIE: 10.7-cm Ultrasound biophysical profile total score: Six of eight IMPRESSION: 1. BPP: Six of eight. 2. Targeted OB sonogram for requested parameters
--- NOTE | 2018-12-20 00:58 | Non Stress Test Report ---
Non Stress Test Datetime Report Generated by CPN: 12/20/2018 00:57 DEMOGRAPHIC Test Number: 3 EGA NST: 37.0 INDICATION Indication for Study: Ordered by Provider VITAL SIGNS Temperature - NST: 97.7 Pulse - NST: 81 RESP - NST: 18 NBPSYS NST: 129 NBPDIA NST: 72 MONITORING Time on Monitor: 12/19/2018 20:06 Time off Monitor: 12/19/2018 23:32 NST Duration: 206 NST INTERVENTIONS NST Interventions: PO Hydration; IV Fluids; For Biophysical Profile BABY A: [id number] BABY A Movement : Present Contraction Frequency : irregular FHR Baseline : 125 Accelerations : 15X15 Variability : Moderate 6-25bpm NST Review: Meets Criteria for Reactive NST NST Review and Verified By : Chalman, A. RN NST Results: Reactive NST COMMENTS NST Comments: fetus initially tachycardic. Settled down within normal baseline range after bolus of IVF. NST REPORT Report Trigger: Send Report
== END 2018-12-20 00:35 | disposition home or self-care (01) ==
LOC: LC 18:51
PROVIDERS: ATTEND Obstetrics & Gynecology
PROC: 4A1HXCZ Monitoring of Products of Conception, Cardiac Rate, External Approach (ICD-10-PCS; principal; 2018-12-19)
DX: O47.1 False labor at or after 37 completed weeks of gestation (principal); Z3A.37 37 weeks gestation of pregnancy
CPT/HCPCS: 36415; 59025; 76819; 80053; 80307; 81001; 82962; 85025

== ENCOUNTER 2019-01-11 02:12 | Inpatient (IN) | payer BC, OTHER ==
[2019-01-11 02:56] LABS: APPEARANCE,URINE CLEAR; BILIRUBIN,URINE NEGATIVE (NEGATIVE); COLOR,URINE YELLOW; GLUCOSE, URINE NEGATIVE (NEGATIVE); KETONES,URINE NEGATIVE (NEGATIVE); LEUKOCYTE ESTERASE,URINE NEGATIVE (NEGATIVE); NITRITE,URINE NEGATIVE (NEGATIVE); PROTEIN,URINE NEGATIVE (NEGATIVE); URINE SPECIFIC GRAVITY 1.009; UROBILINOGEN,URINE NEGATIVE mg/dL (<2.0)
[2019-01-11 03:24] LABS: URINE AMPHETAMINES SCREEN NEGATIVE; URINE BARBITURATES SCREEN NEGATIVE; URINE BENZODIAZEPINES SCREEN NEGATIVE; URINE COCAINE SCREEN NEGATIVE; URINE MARIJUANA (THC) SCREEN NEGATIVE; URINE METHADONE SCREEN NEGATIVE; URINE PHENCYCLIDINE SCREEN NEGATIVE
[2019-01-11] MEDS ORDERED: CLINDAMYCIN 900 MG/D5W RTU 0 MG/0 ML RTUPB IV ONE (03:58)
[2019-01-11] MEDS ORDERED: VANCOMYCIN HCL INJ 1000 MG VIAL ONE ×2 (04:07→17:38)
[2019-01-11] MEDS ORDERED: VANCOMYCIN HCL INJ 1000 MG VIAL IV PRN (04:12)
[2019-01-11] MEDS: RINGERS SOLUTION,LACTATED 1,000 ML IV PRN ×2 (04:15→06:03)
[2019-01-11] MEDS ORDERED: PROMETHAZINE HCL INJ 25 MG/1 ML VIAL IV ONE (04:30)
[2019-01-11 04:37] LABS: ABSOLUTE BASOPHILS # (AUTO) 0.1 10^3/uL (0.0-0.2); ABSOLUTE LYMPHOCYTES (AUTO) 1.5 10^3/uL (0.5-4.7); ABSOLUTE MONOCYTES (AUTO) 0.6 10^3/uL (0.1-1.4); ABSOLUTE NEUT (AUTO) 12.6 10^3/uL (1.7-8.2); BASOPHILS % (AUTO) 0.5 % (0-2); EOSINOPHILS % (AUTO) 0.3 % (0-6); HEMATOCRIT 36.7 % (36.0-47.0); HEMOGLOBIN 12.2 g/dL (12.0-15.5); LYMPHOCYTES % (AUTO) 10.2 % (13-45); MEAN CORPUSCULAR HEMOGLOBIN 26.6 pg (27.0-33.4); MEAN CORPUSCULAR HGB CONC 33.2 g/dL (32.0-36.0); MEAN CORPUSCULAR VOLUME 80 fl (80-97); PLATELET COUNT 186 10^3/uL (150-450); RED BLOOD COUNT 4.57 10^6/uL (3.72-5.28); RED CELL DISTRIBUTION WIDTH 19.4 % (11.5-14.0); TOTAL CELLS COUNTED % (AUTO) 100 %; WHITE BLOOD COUNT 14.9 10^3/uL (4.0-10.5)
[2019-01-11] MEDS ORDERED: NALBUPHINE HCL INJ 10 MG/1 ML AMPULE ONE (04:44)
[2019-01-11] MEDS ORDERED: PROMETHAZINE HCL INJ 25 MG/1 ML VIAL ONE (04:44)
[2019-01-11] MEDS ORDERED: NALBUPHINE HCL INJ 10 MG/1 ML AMPULE INJ ONE (05:00)
[2019-01-11] MEDS ORDERED: CLINDAMYCIN 900 MG/D5W RTU 900 MG/50 ML RTUPB IV SCH (06:00)
[2019-01-11] MEDS ORDERED: VANCOMYCIN HCL 1,000 MG in DEXTROSE 5%-WATER 250 ML IV SCH (06:00)
[2019-01-11] MEDS ORDERED: EPHEDRINE SULFATE INJ 50 MG/1 ML AMPULE ONE (06:08)
[2019-01-11] MEDS ORDERED: MISOPROSTOL 0.2 MG TABLET ONE (06:08)
[2019-01-11] MEDS ORDERED: OXYTOCIN 10 UNIT/ML VIAL ONE (06:08)
[2019-01-11] MEDS ORDERED: OXYTOCIN/NORMAL SALINE 20 UNIT/1,000 ML RTUINJ ONE (06:09)
[2019-01-11] MEDS ORDERED: FENTANYL/BUPIVACAINE/NS/PF 300 MCG/150 ML RTUINJ EPI ONE (06:09)
[2019-01-11] MEDS ORDERED: BUPIVACAINE HCL 0.25 % INJ/PF (2.5 MG/1 ML) 30 ML VIAL ONE (06:09)
[2019-01-11] MEDS ORDERED: LIDOCAINE 1% INJ-PF (10 MG/ML) 30 ML SDV ONE (06:09)
--- NOTE | 2019-01-11 08:32 | Admission Physical ---
Datetime Report Generated by CPN: 01/11/2019 08:32 CURRENT ADMISSION Hx Assessment: The History has been Reviewed and is Current Chief Complaint: Uterine Contractions Admit Impression : Active Labor Admit Plan: Admit to Unit; Initiate Labor Protocol ALLERGIES Medication Allergies: No Medication Allergies: Penicillins (01/11/2019); Sulfa (Sulfonamide Antibiotics) (01/11/2019) Latex: No Latex Allergies Food Allergies: None Environmental Allergies: None OBSTETRICAL HISTORY EDC: 01/09/2019 00:00 : 1 Para: 0 Term: 0 : 0 SAB: 0 IAB: 0 Ectopic: 0 Livin Cesareans: 0 VBACs: 0 Multiple Births: 0 Gestational Diabetes: Yes Rh Sensitization: No Incompetent Cervix: No MICHAELA: No Infertility: No ART Treatment: No Uterine Anomaly: No IUGR: No Hx Previous C/S: No Macrosomia: No Hx Loss/Stillborn: No PIH: No Hx : No Placenta Previa/Abruption: No Depression/PP Depression: No PTL/PROM: No Post Hemorrhage: No Current Procedures: Ultrasound; NST Obstetrical History Comments: G1 - Diet controlled GDM SEE RECORDS Alcohol: No Marijuana : No Cocaine: No Other Illicit Drugs: No Cigarettes: Never Smoker. [id number] MEDICAL HISTORY Diabetes: Yes Diabetes Type: Gestational Diabetes Blood Transfusion: No Pulmonary Disease (Asthma, TB): No Breast Disease: No Hypertension: No Plastic Surgery Manager Surgery: No Heart Disease: No Hosp/Surgery: Yes Autoimmune Disorder: No Anesthetic Complications: No Kidney Disease: No Abnormal Pap Smear: No Neuro/Epilepsy: No Psychiatric Disorders: Yes Other Medical Diseases: No Hepatitis/Liver Disease: No Significant Family History: No Varicosities/Phlebitis: No Trauma/Violence : No Thyroid Dysfunction: No Medical History Comments: Anxiety, Depression, ADHD, Mood disorder, Ankle surgery, mrsa on leg in 2013, obesity INFECTIOUS HISTORY Gonorrhea: No Genital Herpes: No Chlamydia: No Tuberculosis: No Syphilis: No Hepatitis: No HIV/AIDS Exposure: No Rash or Viral Illness: No HPV: No PHYSICAL EXAM General: Normal HEENT: Normal Neurologic: Normal Thyroid: Normal Heart: Normal Lungs: Normal Breast: Normal Back: Normal Abdomen: Normal Genitourinary Exam: Normal Extremities: Normal DTRs: Normal Pelvic Type: Adequate Physical Exam Comments: GBS positive on Vancomycin d/t allergy profile Vital Signs: Reviewed VAGINAL EXAM Dilatation: 3 Effacement: 90 Station: -2 Contraction Comments: q 3 min MEMBRANES Membranes: Intact FETUS A EGA: 36.5 Monitoring: External US FHR- Baseline: 135 Variability: Moderate 6-25bpm Accelerations: 15X15 Decelerations: None FHR Category: Category I Admit Comment: TEST PLANS FOR LABOR AND DELIVERY Labor and Delivery: None Pain Management: Epidural Feeding Preference: Breast Benefit of Breast Feed Discussed: Yes Circumcision: N/A INFORMED CONSENT Informed Consent Obtained: Vaginal Delivery; Risks, Benefits and Alternatives Discussed Signature: with User ID: Wilner : with User ID: Wilner
[2019-01-11] MEDS ORDERED: ACETAMINOPHEN 325 MG TABLET ONE (14:55)
[2019-01-11] MEDS ORDERED: ONDANSETRON HCL INJ/PF 4 MG/2 ML SDV ONE (15:30)
[2019-01-11] MEDS ORDERED: ONDANSETRON HCL INJ/PF 4 MG/2 ML SDV IV ONE (16:30)
[2019-01-11] MEDS ORDERED: ALBUTEROL SULFATE HFA (90 MCG/PUFF) 200 PUFF/8.5 GM MDI IH ONE (17:12)
[2019-01-11] MEDS ORDERED: IBUPROFEN 800 MG TABLET ONE (17:37)
[2019-01-11] MEDS ORDERED: NA PHOS,M-B/NA PHOS,DI-BA (ADULT) 133 ML ENEMA PR PRN (17:38)
[2019-01-11] MEDS ORDERED: MAGNESIUM HYDROXIDE SUSP 30 ML UDCUP PO PRN (17:38)
[2019-01-11] MEDS ORDERED: PROMETHAZINE HCL 25 MG TABLET PO PRN (17:38)
[2019-01-11] MEDS ORDERED: PROMETHAZINE HCL INJ 25 MG/1 ML VIAL IV PRN (17:38)
[2019-01-11] MEDS ORDERED: GLYCERIN/WITCH HAZEL LEAF 1 EACH MED..WIPE TP PRN (17:38)
[2019-01-11] MEDS ORDERED: PSEUDOEPHEDRINE HCL 30 MG TABLET PO PRN (17:38)
[2019-01-11] MEDS ORDERED: BENZOCAINE/MENTHOL AEROSOL SPRAY 56 ML TOP PRN (17:38)
[2019-01-11] MEDS ORDERED: PROMETHAZINE HCL 25 MG SUPP.RECT PR PRN (17:38)
[2019-01-11] MEDS ORDERED: DIBUCAINE 1% OINTMENT 56 GM TP PRN (17:38)
[2019-01-11] MEDS ORDERED: OXYTOCIN/NORMAL SALINE 20 UNIT/1,000 ML RTUINJ IV PRN (17:38)
[2019-01-11] MEDS ORDERED: DIPH/PERTUSS(ACELL)/TETANUS VAC/PF 0.5 ML SYR (>=10YO) IM PRN (17:38)
[2019-01-11] MEDS ORDERED: ACETAMINOPHEN 650 MG SUPP.RECT PR PRN (17:38)
[2019-01-11] MEDS ORDERED: ACETAMINOPHEN WITH CODEINE #3 TABLET PO PRN ×2 (17:38)
[2019-01-11] MEDS ORDERED: MEASLES,MUMPS&RUBELLA VACC/PF 0.5 ML VIAL SUBCUT PRN (17:38)
[2019-01-11] MEDS ORDERED: ZOLPIDEM TARTRATE 5 MG TABLET PO PRN (17:38)
[2019-01-11] MEDS ORDERED: DIPHENHYDRAMINE HCL 25 MG CAPSULE PO PRN (17:38)
--- NOTE | 2019-01-11 19:30 | Warning Signs in Babies ---
VOD Warning Signs Datetime Report Generated by N: 01/11/2019 19:30 VOD#608 -Warning Signs in Babies: Viewed with Parent(s)/Family (01/11/2019 18:25:Tiesha Menjivar RN)
--- NOTE | 2019-01-11 19:32 | Delivery Summary ---
Del Sum A-C Datetime Report Generated by CPN: 01/11/2019 19:32 DELIVERY PERSONNEL DELIVERY PERSONNEL: [id number] Delivery Doctor:: Thu Abernathy MD Labor and Delivery Nurse:: Tiesha Menjivar RNis analyst Nurse:: Lakesha Costello RN Nursery Nurse:: Emily Mendoza RN Nursery Nurse:: Hiwot Zafar RN Admitting Representative/ELECTRIC DISTRIBUTION CHECKER: Maria Del Rosario Ivory, ST MATERNAL INFORMATION Delivery Anesthesia: Epidural Medications After Delivery: Pitocin Drip 20 Units/1000ml NSS Estimated Blood Loss (ml): 250 Delivery QBL: 200 Delivery QBL Comment: total [id number] Maternal Complications: None LABOR SUMMARY EDC: 01/09/2019 00:00 No. Babies in Womb: 1 Attempted: No Labor Anesthesia: Epidural LABOR INFORMATION Reason for Induction: Not Applicable Onset of Labor: 01/11/2019 03:55 Complete Dilatation: 01/11/2019 14:42 Oxytocin: N/A Group B Beta Strep: positive Antibiotics # of Doses: 1 Antibiotics Time of Last Dose: 714 Name of Antibiotic Given: vancomyocin Steroids Given: None Reason Steroids Not Administered: Not Applicable MEMBRANES Membranes Rupture Method: Spontaneous Rupture of Membranes: 01/11/2019 13:17 Length of Rupture (hr): 3.93 Amniotic Fluid Color: Moderate Meconium Amniotic Fluid Amount: Large Amniotic Fluid Odor: Normal STAGES OF LABOR Stage 1 hr: 10 Stage 1 min: 47 Stage 2 hr: 2 Stage 2 min: 31 Stage 3 hr: 0 Stage 3 min: 12 Total Time in Labor hr: 13 Total Time in Labor min: 30 VAGINAL DELIVERY Episiotomy: None Laceration #1: Perineal Laceration Extension #1: First Degree Laceration #2: None Laceration Extension #2: N/A Laceration #3: None Laceration Extension #3: N/A Laceration Repair: Yes Laceration Repair Note: 3-0 chromic used to repair small perineal laceration Sponge Count Correct: Vaginal Sweep Performed Sharps Count Correct: Yes CSECTION DELIVERY Primary Indication: N/A Secondary Indication: N/A CSection Incidence: N/A Labor: N/A Elective: N/A CSection Incision: N/A BABY A INFORMATION Infant Delivery Date/Time: 01/11/2019 17:13 Method of Delivery: Vaginal Born in Route : No : N/A Forceps: N/A Vacuum Extraction: Successful Shoulder Dystocia : No ASSISTED DELIVERY BABY A Indication for Assisted Delivery: maternal exhaustion, tachycardia Catheter Prior to Procedure: No Station Vacuum/Forcep Apply: +3 Position Vacuum/Forcep Apply: OA Vacuum Number of Pulls: 1 Vacuum Number of PopOffs: 0 Vacuum Maximum Pressure Obtained: 550 Reduce Pressure btwn Ctx: No Vacuum Silk Screen Printer Helper: kiwi Total Time Vacuum Applied: 20 seconds Vacuum/Forceps Comment: one very easy pull PRESENTATION/POSITION BABY A Presentation: Cephalic Cephalic Presentation: Vertex Vertex Position: Right Occipital Anterior Breech Presentation: N/A PLACENTA INFORMATION BABY A Placenta Delivery Time : 01/11/2019 17:25 Placenta Method of Delivery: Manual Removal Placenta Status: Delivered SCORES BABY A Heart Rate 1 min: >100 bpm Resp Effort 1 min: Good Cry Reflex Irritability 1 min: Cough or Sneeze or Pulls Away Muscle Tone 1 min: Active Motion Color 1 min: Body [place], Extremities Blue Resuscitation Effort 1 min: Tactile Stimulation SCORE 1 MIN: 9 Heart Rate 5 min: >100 bpm Resp Effort 5 min: Good Cry Reflex Irritability 5 min: Cough or Sneeze or Pulls Away Muscle Tone 5 min: Active Motion Color 5 min: Body [place], Extremities Blue SCORE 5 MIN: 9 INFORMATION BABY A Gestational Age at Delivery: 40.2 Gestational Status: Full Term- 39- 40.6 Weeks Outcome : Liveborn Infant Condition : Stable Infant Sex: Female IDENTIFICATION BABY A Infant Verification Date/Time: 01/11/2019 17:54 ID Band Number: [id number] Mother's Name Verified: Yes RN Verifying : Maryann Menjivar RN and Mark Kaufman RN WEIGHT/LENGTH BABY A Infant Birthweight (gm): 4039 Weight (lb): 8 Infant Weight (oz): 14 Length (in): 21.75 Infant Length (cm): 55.25 CORD INFORMATION BABY A No. Cord Vessels: 3 Nuchal Cord : Around Neck x1, Loose Cord Blood Taken: Yes-For Storage (Mom's Blood type +) Infant Suction: None ASSESSMENT BABY A Infant Complications: None Physical Findings at Delivery: Within Normal Limits Respirations: Appears Normal Court Monitor/ALS Called : No Care By: Michelle Mendoza RN Transferred To: Remains with Mother BABY B INFORMATION : N/A SIGNATURES Signature: with User ID: [facility]
--- NOTE | 2019-01-11 19:34 | Warning Signs in Babies ---
VOD Warning Signs Datetime Report Generated by N: 01/11/2019 19:33 VOD#608 -Warning Signs in Babies: Viewed with Parent(s)/Family (01/11/2019 19:33:Debi Salgado RN)
[2019-01-11] MEDS: IBUPROFEN 800 MG TABLET PO SCH (22:10)
[2019-01-11] MEDS: FAMOTIDINE 20 MG TABLET PO SCH (22:10)
[2019-01-12] MEDS: VANCOMYCIN HCL INJ 1000 MG VIAL IV SCH ×3 (06:27→18:56)
[2019-01-12] MEDS: IBUPROFEN 800 MG TABLET PO SCH ×3 (06:29→22:10)
[2019-01-12 07:54] LABS: HEMATOCRIT 29.2 % (36.0-47.0); MEAN CORPUSCULAR HGB CONC 33.3 g/dL (32.0-36.0); MEAN CORPUSCULAR VOLUME 81 fl (80-97); PLATELET COUNT 167 10^3/uL (150-450); WHITE BLOOD COUNT 14.2 10^3/uL (4.0-10.5)
[2019-01-12 07:55] LABS: HEMOGLOBIN 9.7 g/dL (12.0-15.5)
[2019-01-12] MEDS: DOCUSATE SODIUM 100 MG CAPSULE PO SCH ×3 (09:27→18:28)
[2019-01-12] MEDS: FERROUS SULFATE 325 MG TABLET PO SCH ×3 (09:27→18:28)
--- NOTE | 2019-01-12 09:52 | PDOC PROGRESS REPORT ---
Subjective-OB Progress Note for:: 01/12/19 Subjective: Doing well, no c/o, hsb at BS, holding baby, bottle feeding Physical Exam (OB) Vital Signs: Temp Pulse Resp BP Pulse Ox 97.3 F 79 14 120/65 98 01/12/19 07:23 01/12/19 07:23 01/12/19 07:23 01/12/19 07:23 01/12/19 07:23 Intake & Output 01/11/19 01/12/19 01/13/19 06:59 06:59 06:59 Intake Total 225 1000 Balance 225 1000 Weight 144 kg - PIH/Pre-Eclampsia Clonus: Negative Headache: Absent Epigastric Pain: No Visual Changes: No - Lochia Lochia Amount: Scant < 10 ml Lochia Color: Rubra/Red - Abdomen Description: Soft Hernia Present: Yes Fundal Description: Firm, Midline Fundal Height: u/u - u/2 Objective-Diagnostic Laboratory: 01/12/19 07:30 01/12/19 07:30 WBC 14.2 H RBC 3.60 L Hgb 9.7 L D Hct 29.2 L MCV 81 MCH 27.0 MCHC 33.3 RDW 20.0 H Plt Count 167 Assessment and Plan(PN) - Assessment and Plan (1) History of MRSA infection Is this a current diagnosis for this admission?: Yes (2) Depression Qualifiers: Trimester: unspecified trimester Is this a current diagnosis for this admission?: Yes (3) Anxiety Is this a current diagnosis for this admission?: Yes (4) Gestational diabetes mellitus Qualifiers: Trimester: second trimester Is this a current diagnosis for this admission?: Yes (5) GBS (group B Streptococcus carrier), +RV culture, currently Is this a current diagnosis for this admission?: Yes (6) Anemia Qualifiers: Anemia type: iron deficiency Is this a current diagnosis for this admission?: Yes - Time Spent with Patient Time with patient: Less than 15 minutes Medications reviewed and adjusted accordingly: Yes - Disposition Anticipated Discharge: Home Within: within 24 hours
[2019-01-12] MEDS: PRENATAL VITAMIN W DHA CAPSULE PO SCH (10:05)
[2019-01-12] MEDS: FAMOTIDINE 20 MG TABLET PO SCH ×2 (10:05→22:10)
[2019-01-12] MEDS: SENNOSIDES/DOCUSATE 8.6-50 MG 1 EACH TABLET PO SCH (10:05)
[2019-01-13] MEDS: IBUPROFEN 800 MG TABLET PO SCH ×2 (05:41→14:37)
[2019-01-13 08:07] VITALS: BP 120/72
[2019-01-13 08:19] LABS: ABSOLUTE EOSINOPHILS # (AUTO) 0.1 10^3/uL (0.0-0.6); ABSOLUTE LYMPHOCYTES (AUTO) 1.6 10^3/uL (0.5-4.7); ABSOLUTE MONOCYTES (AUTO) 0.5 10^3/uL (0.1-1.4); ABSOLUTE NEUT (AUTO) 9.1 10^3/uL (1.7-8.2); BASOPHILS % (AUTO) 0.3 % (0-2); EOSINOPHILS % (AUTO) 0.9 % (0-6); HEMATOCRIT 31.8 % (36.0-47.0); HEMOGLOBIN 10.2 g/dL (12.0-15.5); LYMPHOCYTES % (AUTO) 14.1 % (13-45); MEAN CORPUSCULAR HEMOGLOBIN 26.3 pg (27.0-33.4); MEAN CORPUSCULAR HGB CONC 32.2 g/dL (32.0-36.0); MEAN CORPUSCULAR VOLUME 82 fl (80-97); MONOCYTES % (AUTO) 4.6 % (3-13); PLATELET COUNT 184 10^3/uL (150-450); RED BLOOD COUNT 3.89 10^6/uL (3.72-5.28); RED CELL DISTRIBUTION WIDTH 19.8 % (11.5-14.0); SEGMENTED NEUTROPHILS % (AUTO) 80.1 % (42-78); TOTAL CELLS COUNTED % (AUTO) 100 %; WHITE BLOOD COUNT 11.3 10^3/uL (4.0-10.5)
[2019-01-13] MEDS: DOCUSATE SODIUM 100 MG CAPSULE PO SCH (11:05)
[2019-01-13] MEDS: FERROUS SULFATE 325 MG TABLET PO SCH (11:05)
[2019-01-13] MEDS: FAMOTIDINE 20 MG TABLET PO SCH (11:05)
[2019-01-13] MEDS: SENNOSIDES/DOCUSATE 8.6-50 MG 1 EACH TABLET PO SCH (11:05)
[2019-01-13] MEDS: PRENATAL VITAMIN W DHA CAPSULE PO SCH (11:05)
--- NOTE | 2019-01-13 11:15 | PDOC DISCHARGE SUMMARY ---
Impression - Admit/DC Date/PCP Admission Date/Primary Care Provider: 01/11/19 04:04 PABLITO STEVENSON MD Discharge Date: 01/13/19 - Discharge Diagnosis (1) Anxiety Is this a current diagnosis for this admission?: Yes (2) Depression Is this a current diagnosis for this admission?: Yes (3) GBS (group B Streptococcus carrier), +RV culture, currently Is this a current diagnosis for this admission?: Yes (4) Gestational diabetes mellitus Is this a current diagnosis for this admission?: Yes (5) History of MRSA infection Is this a current diagnosis for this admission?: Yes - Additional Information Discharge Diet: Regular Discharge Activity: Balance Activity w/Rest, Pelvic Rest Referrals: PABLITO STEVENSON MD [Primary Care Provider] - Prescriptions: Ibuprofen [Motrin 800 mg Tablet] 800 mg PO Q8HP PRN #60 tablet PRN Reason: Pnv No.95/Ferrous Fum/Folic AC [ Caplet] 1 each PO DAILY #90 Home Medications: Omeprazole 40 mg PO DAILY 12/02/18 Ibuprofen [Motrin 800 mg Tablet] 800 mg PO Q8HP PRN #60 tablet 01/13/19 Pnv No.95/Ferrous Fum/Folic AC [ Caplet] 1 each PO DAILY #90 01/13/19 HPI Gestational Age: 36+5 Reason(s) for Admission: Onset of Labor Procedures: NST Intrapartum Procedure(s): Spontaneous Vaginal Delivery Hospital Course Hospital Course: admitted in active labor, had spontaneous vaginal delivery. stable on PP day #2, ready for discharge. Results Laboratory Results: WBC 11.3 10^3/uL (4.0-10.5) H 01/13/19 07:33 RBC 3.89 10^6/uL (3.72-5.28) 01/13/19 07:33 Hgb 10.2 g/dL (12.0-15.5) L 01/13/19 07:33 Hct 31.8 % (36.0-47.0) L 01/13/19 07:33 MCV 82 fl (80-97) 01/13/19 07:33 MCH 26.3 pg (27.0-33.4) L 01/13/19 07:33 MCHC 32.2 g/dL (32.0-36.0) 01/13/19 07:33 RDW 19.8 % (11.5-14.0) H 01/13/19 07:33 Plt Count 184 10^3/uL (150-450) 01/13/19 07:33 Lymph % (Auto) 14.1 % (13-45) 01/13/19 07:33 Labette % (Auto) 4.6 % (3-13) 01/13/19 07:33 Eos % (Auto) 0.9 % (0-6) 01/13/19 07:33 Baso % (Auto) 0.3 % (0-2) 01/13/19 07:33 Absolute Neuts (auto) 9.1 10^3/uL (1.7-8.2) H 01/13/19 07:33 Absolute Lymphs (auto) 1.6 10^3/uL (0.5-4.7) 01/13/19 07:33 Absolute Monos (auto) 0.5 10^3/uL (0.1-1.4) 01/13/19 07:33 Absolute Eos (auto) 0.1 10^3/uL (0.0-0.6) 01/13/19 07:33 Absolute Basos (auto) 0.0 10^3/uL (0.0-0.2) 01/13/19 07:33 Seg Neutrophils % 80.1 % (42-78) H 01/13/19 07:33 POC Glucose 79 mg/dL (70-110) 01/11/19 12:03 Urine Color YELLOW 01/11/19 02:26 Urine Appearance CLEAR 01/11/19 02:26 Urine pH 7.0 (5.0-9.0) 01/11/19 02:26 Ur Specific [place] 1.009 01/11/19 02:26 Urine Protein NEGATIVE mg/dL (NEGATIVE) 01/11/19 02:26 Urine Glucose (UA) NEGATIVE mg/dL (NEGATIVE) 01/11/19 02:26 Urine Ketones NEGATIVE mg/dL (NEGATIVE) 01/11/19 02:26 Urine Blood NEGATIVE (NEGATIVE) 01/11/19 02:26 Urine Nitrite NEGATIVE (NEGATIVE) 01/11/19 02:26 Urine Bilirubin NEGATIVE (NEGATIVE) 01/11/19 02:26 Urine Urobilinogen NEGATIVE mg/dL (<2.0) 01/11/19 02:26 Ur Leukocyte Esterase NEGATIVE (NEGATIVE) 01/11/19 02:26 Urine Ascorbic Acid NEGATIVE (NEGATIVE) 01/11/19 02:26 Urine Opiates Screen NEGATIVE 01/11/19 02:26 Urine Methadone Screen NEGATIVE 01/11/19 02:26 Ur Barbiturates Screen NEGATIVE 01/11/19 02:26 Ur Phencyclidine Scrn NEGATIVE 01/11/19 02:26 Ur Amphetamines Screen NEGATIVE 01/11/19 02:26 U Benzodiazepines Scrn NEGATIVE 01/11/19 02:26 Urine Cocaine Screen NEGATIVE 01/11/19 02:26 U Marijuana (THC) Screen NEGATIVE 01/11/19 02:26 RPR NONREACTIVE (NONREACTIVE) 01/11/19 04:26 Blood Type A POSITIVE 01/11/19 04:26 Antibody Screen NEGATIVE 01/11/19 04:26 Plan Plan of Treatment: plans to go back on her psych meds and has appt pending with dr mark. plans to go back on lamictal, lexapro, vyvance, pazosin and abilify Goals: 4w-PP visit
== END 2019-01-13 17:20 | disposition home or self-care (01) | DRG 807 ==
LOC: LC 02:12 → LR 04:04 → 2N 21:15
PROVIDERS: ADMIT Obstetrics & Gynecology; ATTEND Obstetrics & Gynecology
PROC: 10D07Z6 Extraction of Products of Conception, Vacuum, Via Natural or Artificial Opening (ICD-10-PCS; principal; 2019-01-11)
PROC: 0HQ9XZZ Repair Perineum Skin, External Approach (ICD-10-PCS; 2019-01-11)
DX: O24.420 Gestational diabetes mellitus in childbirth, diet controlled (principal); Z37.0 Single live birth; O99.824 Streptococcus B carrier state complicating childbirth; O99.344 Other mental disorders complicating childbirth; F41.9 Anxiety disorder, unspecified; F32.9 Major depressive disorder, single episode, unspecified; D50.9 Iron deficiency anemia, unspecified; O99.02 Anemia complicating childbirth; F90.9 Attention-deficit hyperactivity disorder, unspecified type; F39 Unspecified mood [affective] disorder; O70.0 First degree perineal laceration during delivery; O75.81 Maternal exhaustion complicating labor and delivery; O69.81X0 Labor and delivery complicated by cord around neck, without compression, not applicable or unspecified; Z86.14 Personal history of Methicillin resistant Staphylococcus aureus infection; Z88.0 Allergy status to penicillin; Z88.2 Allergy status to sulfonamides; Z3A.36 36 weeks gestation of pregnancy
CPT/HCPCS: 36415; 59025; 80307; 81005; 82962; 85025; 85027; 86592; 86850; 86900; 86901; J2300; J2405; J2550; J2590; J3010; J3370; J3490; J7060

== ENCOUNTER → 2019-08-07 | Outpatient (CLI) | payer BC, OTHER ==
--- NOTE | 2019-08-07 11:06 | RADIOLOGY REPORT (SQ) ---
EXAM DESCRIPTION: CT ABD/PELVIS WITH IV ORAL IMAGES COMPLETED DATE/TIME: 08/07/2019 10:52 am REASON FOR STUDY: UNSPECIFIED ABD PAIN (R10.9) R10.9 UNSPECIFIED ABDOMINAL PAIN COMPARISON: None. TECHNIQUE: CT scan of the abdomen and pelvis performed using helical scanning technique with dynamic intravenous contrast injection. No oral contrast. Images reviewed with lung, soft tissue, and bone windows. Reconstructed coronal and sagittal MPR images reviewed. Delayed images for evaluation of the urinary system also acquired. All images stored on PACS. All CT scanners at this facility use dose modulation, iterative reconstruction, and/or weight based d osing when appropriate to reduce radiation dose to as low as reasonably achievable (ALARA). [facility]: Dose Right [facility]: CareDose [facility]: Dose Right [facility]: Teradose 4D [facility]: [employer] CONTRAST TYPE AND DOSE: contrast/concentration: Isovue 350.00 mg/ml; Total Contrast Delivered: 93.0 ml; Total Saline Delivered: 72.0 ml RENAL FUNCTION: None required. The patient is less than 50 years old. RADIATION DOSE: CT Rad equipment meets quality standard of care and radiation dose reduction techniq ues were employed. CTDIvol: 29.8 - 30.0 mGy. DLP: 3478 mGy-cm.. LIMITATIONS: None. FINDINGS: LOWER CHEST: No significant findings. No nodules or infiltrates. LIVER: Normal size. No masses. No dilated ducts. SPLEEN: Normal size. No focal lesions. PANCREAS: No masses. No significant calcifications. No adjacent inflammation or peripancreatic fluid collections. Pancreatic duct not dilated. GALLBLADDER: No identified stones by CT criteria. No inflammatory changes to suggest cholecystitis. ADRENAL GLANDS: No significant masses or asymmetry. RIGHT KIDNEY AND URETER: No solid masses. No significant calcifications. No hydronephrosis or hyd roureter. LEFT KIDNEY AND URETER: No solid masses. No significant calcifications. No hydronephrosis or hydr oureter. AORTA AND VESSELS: No aneurysm. No dissection. Renal arteries, SMA, celiac without stenosis. RETROPERITONEUM: No retroperitoneal adenopathy, hemorrhage or masses. BOWEL AND PERITONEAL CAVITY: No masses or inflammatory changes. No free fluid or peritoneal masses. APPENDIX: Surgically absent. PELVIS: IUD is in place. No free fluid. There is a 1.2 cm right ovarian cyst. ABDOMINAL WALL: Anterior abdominal wall hernia containing omental fat. BONES: No significant or acute findings. OTHER: No other significant finding. IMPRESSION: NO SIGNIFICANT OR ACUTE FINDING IN THE ABDOMEN OR PELVIS ON CT SCAN WITH IV CONTRAST. TECHNICAL DOCUMENTATION: JOB ID: [id number] Quality ID # [id number]: Final reports with documentation of one or more dose reduction techniques (e.g., Au tomated exposure control, adjustment of the mA and/or kV according to patient size, use of iterative reconstruction technique) 2010 [employer]- All Rights Reserved Reading location - IP/workstation name: [email or web address]
== END ==
LOC: RAD 09:53
PROVIDERS: ATTEND Surgery
DX: R10.9 Unspecified abdominal pain (principal)
CPT/HCPCS: 74177